=== PATIENT | female | born 1960 | race Caucasian/White ===

== ENCOUNTER 2018-04-23 09:06 | Day surgery (SDC) | payer BC ==
[~2018-04-23 09:06] MED LIST: ACETAMINOPHEN 1,000 MG/100 ML BTL IV ONE; CEFAZOLIN 2 Gram 2 GM/50 ML BAG IVPB ONE
[2018-04-23] MEDS ORDERED: LIDOCAINE 2% MDV (20MG/ML) 20ML VIAL IV ONE (09:07)
[2018-04-23] MEDS ORDERED: FENTANYL PF 100MCG/2ML VIAL IV ONE (09:07)
[2018-04-23] MEDS ORDERED: MORPHINE SULFATE 4MG/ML PREFILLED SYRINGE IVP ONE (09:07)
[2018-04-23] MEDS ORDERED: METHYLPREDNISOLONE 40MG/VIAL IM ONE (09:07)
[2018-04-23] MEDS ORDERED: BUPIVACAINE 0.5% W/EPI MPF 30 ML VIAL IVP ONE (09:07)
[2018-04-23] MEDS ORDERED: ONDANSETRON HCL IV 4 MG/2 ML VIAL IVP ONE (09:07)
[2018-04-23] MEDS ORDERED: HYDROCODONE/APAP 7.5/325MG TABLET PO ONE (09:07)
[2018-04-23] MEDS ORDERED: SEVOFLURANE 250 ML INH ONE (09:07)
[2018-04-23] MEDS ORDERED: KETOROLAC 30 MG/ML VIAL IVP ONE (09:07)
[2018-04-23] MEDS ORDERED: PROPOFOL 10 MG/ML VIAL IV ONE (09:07)
--- NOTE | 2018-04-25 08:04 | Operative Note ---
DATE: 04/23/2018. PREOPERATIVE DIAGNOSIS: INTERNAL DERANGEMENT OF THE LEFT KNEE. POSTOPERATIVE DIAGNOSES: 1. GRADE 3 CHONDROMALACIA PATELLA. 2. MODERATE SYNOVITIS OF THE POUCH. 3. TEAR OF THE POSTERIOR HORN OF THE MEDIAL MENISCUS. 4. GRADE 3 CHONDROMALACIA OF THE MEDIAL FEMORAL CONDYLE. PROCEDURES: 1. Left knee arthroscopy with partial medial meniscectomy. 2. Left knee arthroscopy with limited synovectomy. 3. Left knee arthroscopy with chondroplasty of the patella and medial femoral condyle. STAFF SURGEON: Eric Palmer M.D. ANESTHESIA: General. PREPARATION: ChloraPrep. INDIVIDUAL CONSIDERATIONS: None. PROCEDURE: The patient was taken to the operating room and placed supine on the operating table. She had successful induction of a general anesthetic. Her left lower extremity was prepped and draped in the usual fashion. The patient had a superolateral inflow cannula placed. The skin had been infiltrated with 0.5% Marcaine with epinephrine prior. An effusion was drained and the knee was then inflated with normal saline. An inferomedial and an inferolateral portal were made in a similar fashion. The arthroscope was introduced through the inferolateral portal up into the pouch. The patellofemoral joint showed almost grade 3 changes at the patella. The notch had a little fibrocartilage. There was moderate synovitis in the pouch but not really in the gutters. That area of synovitis was debrided with a shaver. The undersurface of the patella was smoothed with a shaver but not down to bone. She had a tear of the posterior horn of the medial meniscus about jail through. I went ahead and debrided it back to a stable rim with basket forceps and a shaver. In the notch the cruciates were normal, and the lateral compartment structures were normal. The knee was then irrigated out with saline to remove loose floating debris. The portals were closed with patrice, and 20 mL of 0.25% plain Marcaine along with 4.0 mg of morphine and 40 mg of Depo Medrol were injected into the knee. A sterile Bulkee compressive dressing was applied. The patient tolerated the procedures well. Needle and sponge counts were correct. Estimated blood loss was minimal. She was taken back to the Recovery in good condition. There were no complications. Job Number: [id number] MTDD
== END 2018-04-23 12:22 | disposition home or self-care (01) ==
LOC: SUR 09:06
PROVIDERS: ATTEND Orthopaedic Surgery
DX: S83.242A Other tear of medial meniscus, current injury, left knee, initial encounter (principal); M94.262 Chondromalacia, left knee; M22.42 Chondromalacia patellae, left knee; M65.9 Synovitis and tenosynovitis, unspecified; I10 Essential (primary) hypertension; F17.210 Nicotine dependence, cigarettes, uncomplicated
CPT/HCPCS: J1030; J1885; J2274; J2405

== ENCOUNTER 2019-04-01 06:58 | Day surgery (SDC) | payer BC ==
[~2019-04-01 06:58] MED LIST changes: -ACETAMINOPHEN 1,000 MG/100 ML BTL IV ONE; +CEFAZOLIN 1G VIAL IVP ONE; -CEFAZOLIN 2 Gram 2 GM/50 ML BAG IVPB ONE; +WATER STERILE FOR INJECTION 20 ML VIAL MC ONE
[2019-04-01] MEDS ORDERED: MIDAZOLAM HCL 2MG/2ML VIAL IV ONE (06:59)
[2019-04-01] MEDS ORDERED: GLYCOPYRROLATE 0.2 MG/ML ML IV ONE (06:59)
[2019-04-01] MEDS ORDERED: LABETALOL HCL 5MG/ML, 20ML VIAL IV ONE (06:59)
[2019-04-01] MEDS ORDERED: DEXAMETHASONE 4 MG/ML 1ML VIAL IVP ONE (06:59)
[2019-04-01] MEDS ORDERED: PROPOFOL 10 MG/ML VIAL IV ONE (06:59)
[2019-04-01] MEDS ORDERED: BUPIVACAINE LIPOSOME/PF 133MG/10ML VIAL IV ONE (06:59)
[2019-04-01] MEDS ORDERED: BUPIVACAINE 0.5% (5MG/ML) PF 30ML VIAL IVP ONE (06:59)
[2019-04-01] MEDS ORDERED: MORPHINE SULFATE PF 10MG/10ML *10ML VIAL IV ONE (06:59)
[2019-04-01] MEDS ORDERED: KETOROLAC 30 MG/ML VIAL IVP ONE (06:59)
[2019-04-01] MEDS ORDERED: KETAMINE HCL 100MG/1ML VIAL INJ ONE (06:59)
[2019-04-01] MEDS ORDERED: ENOXAPARIN 40 MG/0.4 ML SYR SQ ONE (06:59)
[2019-04-01 07:13] LABS: ABSOLUTE NEUTROPHIL COUNT 4.56; BASO % 0.5 % (0-6); EOS % 3.5 % (0-6); GRAN % 57.7 % (47-80); HEMATOCRIT 42.1 % (35.0-47.0); HEMOGLOBIN 14.1 gm/dl (11.6-16.0); LYMPH % 29.7 % (16-45); MEAN CELL VOLUME 94.8 fl (81-97); MEAN CORPUSCULAR HEMOGLOBIN 31.8 pg (27-33); MEAN CORPUSCULAR HGB CONC 33.5 g/dl (32-36); MEAN PLATELET VOLUME 9.1 fl (7.4-10.4); MONO % 8.6 % (0-9); PLATELET COUNT 372 K/uL (130-400); RED BLOOD COUNT 4.44 M/uL (3.80-5.40); RED CELL DISTRIBUTION WIDTH 14.3 % (11.5-14.5); WHITE BLOOD COUNT W/O DIFF 7.9 K/uL (4.2-12.2)
[2019-04-01 07:42] LABS: BLOOD UREA NITROGEN 11 mg/dL (8-23); CREATININE 0.7 mg/dL (0.5-0.9); EST GLOMERULAR FILTRATION RATE > 60 mL/min; GLUCOSE,RANDOM 99 mg/dL (74-109)
[2019-04-01] MEDS ORDERED: RINGERS SOLUTION,LACTATED 1,000 ML IV ONE (07:58)
[2019-04-01] MEDS: CEFAZOLIN 2 Gram 2 GM/50 ML BAG IVPB ONE ×2 (09:10→15:18)
[2019-04-01] MEDS ORDERED: BUPIVACAINE 0.5% W/EPI MPF 30 ML VIAL SQ ONE (10:12)
[2019-04-01] MEDS ORDERED: MORPHINE SULFATE 5 MG/ML VIAL IM ONE (10:13)
[2019-04-01] MEDS ORDERED: METHYLPREDNISOLONE 40MG/VIAL IM ONE (10:13)
--- NOTE | 2019-04-02 08:50 | Operative Note ---
DATE OF SURGERY: 04/01/2019 PREOPERATIVE DIAGNOSIS: Left shoulder impingement, possible cuff tear. POSTOPERATIVE DIAGNOSES: 1. Partial tear of the rotator cuff on the left. 2. Complex glenohumeral labral tear superiorly. 3. Synovitis, left shoulder. 4. Profound external impingement, left shoulder. 5. Arthrosis left distal clavicle. OPERATION: 1. Left shoulder arthroscopy with synovectomy and intraarticular debridement. 2. Left shoulder open acromioplasty, CA ligament resection, and subacromial bursectomy. 3. Left shoulder distal clavicle resection. STAFF SURGEON: Eric Palmer MD ANESTHESIA: General. PREPARATION: Chloraprep. INDIVIDUAL CONSIDERATIONS: None. PROCEDURE: The patient was taken to the operating room, placed supine on the operating room table. She had a successful induction of a shoulder block with IV sedation. She was placed in a semi-seated beach chair position. Her left arm and shoulder were prepped and draped in the usual fashion. The patient had posterior portal identified for arthroscopy. Prior to this, I manipulated the shoulder and she had full motion and no instability. Skin was infiltrated with 0.5% Marcaine with epinephrine prior. An 18-gauge spinal needle was placed in the joint, and the joint was inflated with normal saline with a 60-mL syringe. I then went ahead and made a stab wound, and a blunt-tipped trocar for the scope was inserted into the joint. The joint was inflated with normal saline. An anterior accessory portal was then made just inferior to the intact long head of the biceps tendon in a retrograde fashion with a Wissinger rosa, and the joint was irrigated out. The patient had a complex glenohumeral labral tear superiorly which was debrided and an obvious what was thought to be a full-thickness tear of the rotator cuff but turned out to be a partial tear with unstable fibers. This was debrided and some of this was actually synovitis. There was synovitis in the inferior pouch which was debrided. There was some grade 3 change and soft change on the humeral head but nothing really to debride. The glenoid looked good. The remainder of the labrum looked good. Subscap tendon and long head and the biceps tendon were intact. After irrigation, portals were closed with patrice. The patient had an anterior approach to the subacromial space and distal clavicle. Skin was again infiltrated with 0.5% Marcaine with epinephrine prior. Sharp dissection carried down through skin and subcutaneous tissue. Small veins were coagulated with a Bovie. An anterior deltoid interval was developed. Care was taken not to split the deltoid more than about 4 cm distal to the anterior tip of the acromion to prevent injury to the axillary nerve. Once in the subacromial space, there was a very thick bursa, large anterior spurs, and spurs at the acromioclavicular joint which were large. The space was tight. The deltoid was then taken subperiosteally off the anterior aspect of the acromion, over the top of the intact CA ligament, and off the anterior aspect of the degenerated distal clavicle. CA ligament was resected with a Bovie. Distal clavicle was resected with an oscillating saw taking less than 1 cm. An anterior acromioplasty was performed tapering towards posteromedially taking mainly spur, taking about 6-7 mm. The undersurface was smoothed with a rasp. A very thick bursa was debrided out. I now had a good look at the rotator cuff. Supraspinatus had an area that looked like it was contused and partially planed, and I could actually feel underneath that there may have been possibly a partial tear which I saw in the knee but there was nothing that I thought needed to be repaired at this point. I put the shoulder through a full range of motion to ensure no further impingement. After irrigation, the deltoid was reattached to the remaining acromion with multiple interrupted #2 Vicryl going directly through the bony acromion. The periosteal cuff of the distal clavicle was closed with a running #2 Vicryl. Anterior deltoid interval was closed with a running #0 Vicryl. Subcu was closed with 2-0 plus Vicryl and skin was closed with running 3-0 quill. An 18-gauge spinal needle was placed into the subacromial space. The space was injected with 10 mg of morphine, 10 mL of 0.5% Marcaine with epinephrine, and 40 mg of Depo- Medrol. A sterile bulky compressive dressing and sling were applied. The patient tolerated the procedure well. Needle and sponge counts were correct. Estimated blood loss was minimal. She was taken back to recovery in good condition. There were no complications. [facility]ITAL[facility]
== END 2019-04-01 11:15 | disposition home or self-care (01) ==
LOC: SUR 06:58
PROVIDERS: ATTEND Orthopaedic Surgery
DX: M75.112 Incomplete rotator cuff tear or rupture of left shoulder, not specified as traumatic (principal); S43.431A Superior glenoid labrum lesion of right shoulder, initial encounter; M65.812 Other synovitis and tenosynovitis, left shoulder; M19.012 Primary osteoarthritis, left shoulder; I10 Essential (primary) hypertension; F17.210 Nicotine dependence, cigarettes, uncomplicated
CPT/HCPCS: 29820; 29822; 23120; 23130; 01630; 64418; 85025; 80048; J1885; J0690; C9290; J3490; J1030; J1650; J7120